=== PATIENT | male | born 1980 | race Asian ===

== ENCOUNTER 2016-09-09 08:52 | Emergency (ER) | payer OTHER ==
[~2016-09-09] VITALS: Ht 172.7 cm; Wt 72.6 kg
== END 2016-09-09 10:10 | disposition home or self-care (01) ==
LOC: ED 08:52
PROC: 0HQGXZZ Repair Left Hand Skin, External Approach (ICD-10-PCS; principal; 2016-09-09)
DX: S61.012A Laceration without foreign body of left thumb without damage to nail, initial encounter (principal); W45.8XXA Other foreign body or object entering through skin, initial encounter
CPT/HCPCS: 90715; 96372; 99282

== ENCOUNTER 2016-09-19 15:54 | Emergency (ER) | payer OTHER ==
[~2016-09-19] VITALS: Ht 172.7 cm; Wt 72.6 kg
== END 2016-09-19 16:05 | disposition home or self-care (01) ==
LOC: ED 15:54
DX: Z48.02 Encounter for removal of sutures (principal)